=== PATIENT | male | born 1960 | race African-American/Black ===

== ENCOUNTER 2017-04-01 01:23 | Emergency (ER) | payer OTHER ==
[~2017-04-01] VITALS: Ht 180.3 cm; Wt 90.0 kg
[~2017-04-01 01:23] MED LIST: CARD8TAB6 PO
[2017-04-01 01:24] VITALS: BP 128/76; PULSE 91; RESP 16; TEMP 98.9; O2SAT 97
[2017-04-01 03:22] LABS: BACTERIA, URINE OCC /hpf; BILIRUBIN, URINE NEG (NEG); BLOOD, URINE SMALL (NEG); GLUCOSE,URINE NEG (NEG); KETONE, URINE NEG (NEG); MUCUS URINE FEW /lpf (OCC); NITRITE,URINE POS (NEG); PH, URINE 7.5 (5.0-8.5); SPERM, URINE RARE; URINE COLOR YELLOW (YELLW/STRAW); URINE LEUKOCYTE ESTERASE LARGE (NEG)
[2017-04-01] MEDS ORDERED: DOXA1TAB43 PO (03:41)
[2017-04-01] MEDS ORDERED: CEPH-460 PO (03:41)
--- NOTE | 2017-04-01 03:41 | PD ---
HPI Chief Complaint: Complaint Time Seen by Provider: 02:28 Travel History International Travel<30 days: No Contact w/Intl Traveler<30days: No Traveled to known affect area: No History of Present Illness HPI This is a 56-year-old male who has a history of BPH who presents to the emergency department with pain in his urethra ever since he had a Sauceda catheter put in a week and a half ago. His pain is constant, burning, moderate severity, with no associated fevers or chills. He does have some lower abdominal discomfort. He has been in retirement and they've been changing his catheter care but he feels like they often do her right. He really just wants the catheter out. [facility] Past Medical History Diminished Hearing: No Kidney Stones: Yes Past Surgical History Genitourinary Surgery: Yes (KIDNEY STONE REMOVED 02/22/07) Social History Alcohol Use: No Tobacco Use: Yes (1 PPD) Substance Use: No Allergies-Medications (Allergen,Severity, Reaction): Coded Allergies: No Known Allergies (Verified , 04/01/17) Reported Meds & Prescriptions Reported Meds & Active Scripts Active Cardura 8 mg (Doxazosin Mesylate) 8 Mg Tab 1 Tab PO DAILY Cardura 8 mg (Doxazosin Mesylate) 8 Mg Tab 1 Tab PO DAILY 30 Days Review of Systems Except as stated in HPI: all other systems reviewed are Neg Physical Exam Narrative GENERAL:Well appearing, no acute distress SKIN: Focused skin assessment warm and dry. HEAD: Atraumatic. Normocephalic. EYES: Pupils equal and round. No injection or drainage. ENT: Moist mucous membranes NECK: Trachea midline. CARDIOVASCULAR: Regular rate and rhythm. No murmur appreciated. RESPIRATORY: Clear to auscultation. Breath sounds equal bilaterally. GASTROINTESTINAL: Abdomen soft, non-tender, nondistended. MUSCULOSKELETAL: No obvious deformities. NEUROLOGICAL: Awake and alert. No obvious cranial nerve deficits. Moving all extremities. PSYCHIATRIC: Appropriate mood and affect; insight and judgment normal. Data Data Last Documented VS Vital Signs Date Time Temp Pulse Resp B/P (MAP) Pulse Ox O2 Delivery O2 Flow Rate FiO2 04/01/17 01:24 98.9 91 16 128/76 (93) 97 Room Air Orders Orders Urinalysis - C+S If Indicated (04/01/17 02:49) Remove Urinary Catheter .ONCE (04/01/17 02:49) Urine Culture (04/01/17 03:00) Labs Laboratory Tests Test 04/01/17 03:00 Urine Color YELLOW Urine Turbidity HAZY Urine pH 7.5 Urine Specific [place] 1.022 Urine Protein 30 mg/dL Urine Glucose (UA) NEG mg/dL Urine Ketones NEG mg/dL Urine Occult Blood SMALL Urine Nitrite POS Urine Bilirubin NEG Urine Urobilinogen LESS THAN 2.0 MG/DL Urine Leukocyte Esterase LARGE Urine RBC 17 /hpf Urine WBC 131 /hpf Urine Bacteria OCC /hpf Urine Mucus FEW /lpf Urine Sperm RARE Microscopic Urinalysis Comment CULTURE INDICATED MDM Medical Decision Making Medical Screen Exam Complete: Yes Emergency Medical Condition: Yes Interpretation(s) Urinalysis: Urinary tract infection Differential Diagnosis Urinary tract infection, urethral trauma, Sauceda catheter complication Narrative Course This is a 56-year-old male who has indwelling Sauceda catheter who presents to the emergency department with pain in his urethra. He wants his Sauceda catheter removed. I think this is reasonable. Patient follow-up with urology. His urine is quite cloudy so he was treated for urinary tract infection. He otherwise appears well. He is requesting opiate analgesia but I told him I was unable to fill that for chronic pain in the emergency department. He will be discharged home. Diagnosis Primary Impression: Sauceda catheter problem Qualified Codes: T83.9XXA - Unspecified complication of genitourinary prosthetic device, implant and graft, initial encounter Patient Instructions: General Instructions Additional Instructions: If you develop fever, persistent vomiting, back pain, or inability to eat return to the emergency department as your urine infection may have progressed to a kidney infection. Complete your antibiotics as prescribed. Stay well hydrated with Gatorade or water. Followup with your primary care physician in 2-3 days if your symptoms have not resolved. Med/Other Pt SpecificInfo: Prescription(s) given Scripts Doxazosin (Doxazosin) 8 Mg Tab 8 MG PO DAILY, #30 TAB 0 Refills Prov: Anamika Barajas MD 04/01/17 Cephalexin (Keflex) 500 Mg Cap 500 MG PO Q12H for Infection for 7 Days, #14 CAP 0 Refills Prov: Anamika Barajas MD 04/01/17 Disposition: DISCHARGE HOME Condition: Stable Anamika Barajas MD Apr 01, 2017 03:41
== END 2017-04-01 04:06 | disposition home or self-care (01) ==
LOC: NEPE 01:23
DX: T83.9XXA Unspecified complication of genitourinary prosthetic device, implant and graft, initial encounter (principal); N40.0 Benign prostatic hyperplasia without lower urinary tract symptoms; N39.0 Urinary tract infection, site not specified; B96.20 Unspecified Escherichia coli [E. coli] as the cause of diseases classified elsewhere; Y84.6 Urinary catheterization as the cause of abnormal reaction of the patient, or of later complication, without mention of misadventure at the time of the procedure
CPT/HCPCS: 81001; 87077; 87086; 87186; 99284

== ENCOUNTER 2017-04-01 20:35 | Emergency (ER) | payer OTHER ==
[~2017-04-01] VITALS: Ht 180.3 cm; Wt 90.0 kg
[~2017-04-01 20:35] MED LIST changes: +CEPH-460 PO; +DOXA1TAB43 PO
[2017-04-01 20:37] VITALS: BP 236/100; PULSE 108; RESP 16; TEMP 98.3; O2SAT 98
--- NOTE | 2017-04-01 21:37 | PD ---
HPI Chief Complaint: Complaint Time Seen by Provider: 21:02 Travel History International Travel<30 days: No Contact w/Intl Traveler<30days: No Traveled to known affect area: No History of Present Illness HPI patient had guerrero removed yesterday, he thought that he could urinate without it and diagnosed with uti yesterday as well placed on keflex. returns today c/ o inability to urinate fully since evening, has had similar issues in past, dr moss (urologist) was supposed to do a procedure but he violated probation and went to retirement. [facility] Past Medical History Diminished Hearing: No Genitourinary: Yes (Urinary Retention) Kidney Stones: Yes Tetanus Vaccination: < 5 Years Influenza Vaccination: No Past Surgical History Genitourinary Surgery: Yes (KIDNEY STONE REMOVED 02/22/07) Social History Alcohol Use: No Tobacco Use: Yes (1 PPD) Substance Use: No Allergies-Medications (Allergen,Severity, Reaction): Coded Allergies: No Known Allergies (Verified , 04/01/17) Reported Meds & Prescriptions Reported Meds & Active Scripts Active Doxazosin (Doxazosin Mesylate) 8 Mg Tab 8 Mg PO DAILY Keflex (Cephalexin) 500 Mg Cap 500 Mg PO Q12H 7 Days Cardura 8 mg (Doxazosin Mesylate) 8 Mg Tab 1 Tab PO DAILY Cardura 8 mg (Doxazosin Mesylate) 8 Mg Tab 1 Tab PO DAILY 30 Days Review of Systems Except as stated in HPI: all other systems reviewed are Neg General / Constitutional: No: Fever Eyes: No: Visual changes HENT: No: Headaches Cardiovascular: No: Chest Pain or Discomfort Respiratory: No: Shortness of Breath Gastrointestinal: No: Abdominal Pain Genitourinary: Positive: Decreased Urinary Output, Other (suprapubic discomfort ) Musculoskeletal: No: Pain Skin: No Rash Neurologic: No: Weakness Psychiatric: No: Depression Endocrine: No: Polydipsia Hematologic/Lymphatic: No: Easy Bruising Physical Exam Narrative GENERAL: SKIN: Warm and dry. HEAD: Atraumatic. Normocephalic. EYES: Pupils equal and round. No scleral icterus. No injection or drainage. ENT: No nasal bleeding or discharge. Mucous membranes pink and moist. NECK: Trachea midline. No JVD. CARDIOVASCULAR: Regular rate and rhythm. RESPIRATORY: No accessory muscle use. Clear to auscultation. Breath sounds equal bilaterally. GASTROINTESTINAL: Abdomen soft, non-tender, nondistended. some mild ttp over suprapubic region MUSCULOSKELETAL: Extremities without clubbing, cyanosis, or edema. No obvious deformities. NEUROLOGICAL: Awake and alert. No obvious cranial nerve deficits. Motor grossly within normal limits. Five out of 5 muscle strength in the arms and legs. Normal speech. PSYCHIATRIC: Appropriate mood and affect; insight and judgment normal. Data Data Last Documented VS Vital Signs Date Time Temp Pulse Resp B/P (MAP) Pulse Ox O2 Delivery O2 Flow Rate FiO2 04/01/17 22:36 04/01/17 21:02 18 04/01/17 20:37 98.3 108 98 Room Air Orders Orders Bladder/Catheter Irrigation (04/01/17 21:03) Ed Discharge Order (04/01/17 22:34) [facility] Medical Decision Making Medical Screen Exam Complete: Yes Emergency Medical Condition: Yes Medical Record Reviewed: Yes Differential Diagnosis uti v urinary retention Narrative Course prior ua found to have findings c/w uti and already on abx, after placing guerrero nearly 400cc initial drain, will switch to leg bag and advised patient to follow up with dr moss urology Diagnosis Primary Impression: urinary retention s/p guerrero Patient Instructions: General Instructions, Urinary Retention in Men (DC) Disposition: 01 DISCHARGE HOME Condition: Stable Reinaldo Washburn MD Apr 01, 2017 21:37
== END 2017-04-01 22:38 | disposition home or self-care (01) ==
LOC: NEPD 20:35
DX: R33.9 Retention of urine, unspecified (principal); N39.0 Urinary tract infection, site not specified; B96.20 Unspecified Escherichia coli [E. coli] as the cause of diseases classified elsewhere
CPT/HCPCS: 51700

== ENCOUNTER 2017-04-13 14:04 | Emergency (ER) | payer OTHER ==
[~2017-04-13] VITALS: Ht 180.3 cm; Wt 89.5 kg
[2017-04-13 14:04] VITALS: BP 124/81; PULSE 74; RESP 16; TEMP 98.4; O2SAT 97
--- NOTE | 2017-04-13 17:20 | PD ---
HPI Chief Complaint: Complaint Time Seen by Provider: 15:56 Travel History International Travel<30 days: No Contact w/Intl Traveler<30days: No Traveled to known affect area: No History of Present Illness HPI 56-year-old male with history of BPH presents to emergency room for Guerrero catheter care and replacement. Patient states he had his catheter replaced a few weeks ago in the ED. States he has been doing well until a couple days ago when he began to have urine from the penis leak from around the catheter. Reports associated foul-smelling urine, cloudy urine, and white penile discharge. Denies any recent or new sexual partners. He has had a catheter for the past 5 months. Patient reports it was first placed in senior care where it was managed until he was released. He was supposed to have BPH surgical procedure with Dr. Roque performed in June of this year but was incarcerated and missed his appointment. Denies fever, chills, nausea, vomiting , or flank pain. PFSH Past Medical History Diminished Hearing: No Genitourinary: Yes (Urinary Retention, guerrero cath ) Kidney Stones: Yes Tetanus Vaccination: > 5 Years Past Surgical History Genitourinary Surgery: Yes (KIDNEY STONE REMOVED 02/22/07) Social History Alcohol Use: No Tobacco Use: Yes (1 PPD) Substance Use: No Allergies-Medications (Allergen,Severity, Reaction): Coded Allergies: No Known Allergies (Verified Adverse Reaction, Unknown, 04/13/17) Reported Meds & Prescriptions Reported Meds & Active Scripts Active Augmentin (Amoxicillin-Clavulanate) 500-125 mg Tab 500 Mg PO BID 7 Days Review of Systems Except as stated in HPI: all other systems reviewed are Neg Physical Exam Narrative GENERAL: Well-nourished, well-developed male in no acute distress. Afebrile. Ambulatory. SKIN: Focused skin assessment warm/dry. HEAD: Normocephalic. EYES: No scleral icterus. No injection or drainage. NECK: Supple, trachea midline. No JVD or lymphadenopathy. CARDIOVASCULAR: Regular rate and rhythm without murmurs, gallops, or rubs. RESPIRATORY: Breath sounds equal bilaterally. No accessory muscle use. GASTROINTESTINAL: Abdomen soft, non-tender, nondistended. GENITOURINARY: Examined in the presence of a nurse. Circumcised. Guerrero catheter in place without any purulent drainage. Urine cloudy but yellow. Data Data Last Documented VS Vital Signs Date Time Temp Pulse Resp B/P (MAP) Pulse Ox O2 Delivery O2 Flow Rate FiO2 04/13/17 18:17 87 20 124/74 (91) 99 04/13/17 14:04 98.4 Room Air Orders Orders Complete Blood Count With Diff (04/13/17 16:08) Basic Metabolic Panel (Bmp) (04/13/17 16:08) Ua Includes Microscopic (04/13/17 16:08) Urinary Catheter Insert/Apply (04/13/17 16:08) Ed Discharge Order (04/13/17 18:04) Labs Laboratory Tests Test 04/13/17 16:45 04/13/17 16:55 Urine Color YELLOW Urine Turbidity CLOUDY Urine pH 6.0 Urine Specific [place] 1.026 Urine Protein 300 mg/dL Urine Glucose (UA) NEG mg/dL Urine Ketones NEG mg/dL Urine Occult Blood LARGE Urine Nitrite NEG Urine Bilirubin NEG Urine Urobilinogen LESS THAN 2.0 MG/DL Urine Leukocyte Esterase LARGE Urine RBC /hpf Urine WBC /hpf Urine WBC Clumps OCC Urine Bacteria RARE /hpf Urine Mucus MANY /lpf White Blood Count 7.8 TH/MM3 Red Blood Count 4.37 MIL/MM3 Hemoglobin 14.0 GM/DL Hematocrit 38.8 % Mean Corpuscular Volume 88.9 FL Mean Corpuscular Hemoglobin 31.9 PG Mean Corpuscular Hemoglobin Concent 36.0 % Red Cell Distribution Width 14.4 % Platelet Count 304 TH/MM3 Mean Platelet Volume 6.9 FL Neutrophils (%) (Auto) 45.8 % Lymphocytes (%) (Auto) 35.8 % Monocytes (%) (Auto) 9.0 % Eosinophils (%) (Auto) 8.8 % Basophils (%) (Auto) 0.6 % Neutrophils # (Auto) 3.6 TH/MM3 Lymphocytes # (Auto) 2.8 TH/MM3 Monocytes # (Auto) 0.7 TH/MM3 Eosinophils # (Auto) 0.7 TH/MM3 Basophils # (Auto) 0.0 TH/MM3 CBC Comment AUTO DIFF Differential Comment AUTO DIFF CONFIRMED Platelet Estimate NORMAL Platelet Morphology Comment NORMAL Blood Urea Nitrogen 13 MG/DL Creatinine 0.90 MG/DL Random Glucose 97 MG/DL Calcium Level 8.9 MG/DL Sodium Level 141 MEQ/L Potassium Level 3.7 MEQ/L Chloride Level 108 MEQ/L Carbon Dioxide Level 28.5 MEQ/L Anion Gap 5 MEQ/L Estimat Glomerular Filtration Rate 106 ML/MIN MDM Medical Decision Making Medical Screen Exam Complete: Yes Emergency Medical Condition: Yes Medical Record Reviewed: Yes Differential Diagnosis UTI, sepsis, after complication, obstruction Narrative Course 56-year-old male with history of BPH and urinary catheter for the past 5 months presents to the emergency room for evaluation of penile discharge that he first noticed a few days ago. Patient states he has had cloudy urine and urine going past his catheter over the past few days but denies fever, chills, nausea, vomiting, abdominal pain, or flank pain. He is afebrile and well-appearing in the emergency room. He does not have a PCP or urologist. Physical exam is reassuring. Patient resting comfortably. There is no discharge from the penis. There is some cloudy urine in the catheter. UA shows evidence of urinary tract infection. No evidence of sepsis or indication for admission. Catheter was replaced and had normal outflow and flushed easily. Previous cultures were susceptible to Augmentin. Patient discharged with prescription for Augmentin. Told to follow-up with the urologist or return for worsening symptoms. He understands and agrees to plan. Diagnosis Primary Impression: Complication of Guerrero catheter Qualified Codes: T83.9XXA - Unspecified complication of genitourinary prosthetic device, implant and graft, initial encounter Additional Impression: Urinary tract infection Qualified Codes: N30.01 - Acute cystitis with hematuria Referrals: Urologist Additional Instructions: Rest and drink plenty of fluids. Take Augmentin as directed, until gone. Take ibuprofen with food as directed, as needed for pain. Follow-up with urology. Return to the emergency room for worsening symptoms. Med/Other Pt SpecificInfo: Prescription(s) given Scripts Amoxicillin-Clavulanate (Augmentin) 500-125 mg Tab 500 MG PO BID for Infection for 7 Days, TAB 0 Refills Prov: WilkersonAmbar Hanna ECHEVERRIA 04/13/17 Disposition: 01 DISCHARGE HOME Condition: Stable Ashlee Hinson Apr 13, 2017 17:20
[2017-04-13 17:23] LABS: AUTOMATED NEUTROPHIL # 3.6 TH/MM3 (1.8-7.7); BASOPHIL % 0.6 % (0.0-2.0); EOSINOPHIL # 0.7 TH/MM3 (0-0.4); EOSINOPHIL % 8.8 % (0.0-4.0); HEMATOCRIT 38.8 % (39.0-51.0); LYMPH % 35.8 % (9.0-44.0); LYMPHOCYTE # 2.8 TH/MM3 (1.0-4.8); MEAN CELL VOLUME 88.9 FL (80.0-100.0); MEAN CORPUSCULAR HEMOGLOBIN 31.9 PG (27.0-34.0); NEUT % 45.8 % (16.0-70.0); PLATELET COUNT 304 TH/MM3 (150-450); RED BLOOD COUNT 4.37 MIL/MM3 (4.50-5.90); RED CELL DISTRIBUTION WIDTH 14.4 % (11.6-17.2); WHITE BLOOD COUNT 7.8 TH/MM3 (4.0-11.0)
[2017-04-13 17:32] LABS: BACTERIA, URINE RARE /hpf; BLOOD, URINE LARGE (NEG); GLUCOSE,URINE NEG (NEG); KETONE, URINE NEG (NEG); MUCUS URINE MANY /lpf (OCC); NITRITE,URINE NEG (NEG); URINE COLOR YELLOW (YELLW/STRAW)
[2017-04-13 17:33] LABS: HEMO FLAGS AUTO DIFF
[2017-04-13 17:59] LABS: BICARBONATE 28.5 MEQ/L (21.0-32.0); POTASSIUM 3.7 MEQ/L (3.5-5.1)
[2017-04-13] MEDS ORDERED: AUGM500T7 PO (18:02)
[2017-04-13 18:17] VITALS: BP 124/74
[2017-04-13 18:47] LABS: SCAN/DIFF AUTO DIFF CONFIRMED
[2017-04-13 18:48] LABS: PLATELET ESTIMATE SMEAR NORMAL (NORMAL); PLATELET MORPHOLOGY NORMAL (NORMAL)
== END 2017-04-13 18:56 | disposition home or self-care (01) ==
LOC: NEPD 14:04
DX: T83.511A Infection and inflammatory reaction due to indwelling urethral catheter, initial encounter (principal); N30.01 Acute cystitis with hematuria
CPT/HCPCS: 51702; 80048; 81001; 85025

== ENCOUNTER 2017-04-24 23:31 | Emergency (ER) | payer OTHER ==
[~2017-04-24] VITALS: Ht 180.3 cm; Wt 87.0 kg
[~2017-04-24 23:31] MED LIST changes: +AUGM500T7 PO; -CARD8TAB6 PO; -CEPH-460 PO; -DOXA1TAB43 PO
[2017-04-24 23:39] VITALS: BP 147/83; PULSE 74; RESP 16; TEMP 97.8; O2SAT 98
--- NOTE | 2017-04-25 00:04 | PD ---
HPI Chief Complaint: Complaint Time Seen by Provider: 23:52 Travel History International Travel<30 days: No Contact w/Intl Traveler<30days: No Traveled to known affect area: No History of Present Illness HPI 56-year-old male arrives requesting his Guerrero catheter removed. He also states he's had urinary tract infections and has had multiple different antibiotics all of which seemed to fail to improve the urinary tract infection. No vomiting or diarrhea or nausea reported. No fever reported. He has follow-up with urology in 23 days. He notes some pain at times in the region of the penis which he believes is related to the Guerrero catheter. PFSH Past Medical History Diminished Hearing: No Genitourinary: Yes (Urinary Retention, guerrero cath ) Kidney Stones: Yes Tetanus Vaccination: > 5 Years Influenza Vaccination: No Past Surgical History Genitourinary Surgery: Yes (KIDNEY STONE REMOVED 02/22/07) Social History Alcohol Use: No Tobacco Use: Yes (1 PPD) Substance Use: No Allergies-Medications (Allergen,Severity, Reaction): Coded Allergies: No Known Allergies (Verified Adverse Reaction, Unknown, 04/24/17) Reported Meds & Prescriptions Reported Meds & Active Scripts Active Macrobid (Nitrofurantoin Monoh/Nitrofur Macro) 100 Mg Cap 100 Mg PO BID 5 Days Review of Systems Except as stated in HPI: all other systems reviewed are Neg General / Constitutional: No: Fever Respiratory: No: Shortness of Breath Physical Exam Narrative GENERAL: 56-year-old male well-nourished well-developed no acute distress GENITOURINARY: No discharge at the urethral meatus. There is cloudy yellow urine in his Guerrero bag SKIN: Focused skin assessment warm/dry. HEAD: Atraumatic. Normocephalic. EYES: Pupils equal and round. No scleral icterus. No injection or drainage. CARDIOVASCULAR: Regular rate and rhythm. No murmur appreciated. RESPIRATORY: No accessory muscle use. Clear to auscultation. Breath sounds equal bilaterally. GASTROINTESTINAL: Abdomen soft, non-tender, nondistended. Hepatic and splenic margins not palpable. MUSCULOSKELETAL: No obvious deformities. No clubbing. No cyanosis. No edema. NEUROLOGICAL: Awake and alert. No obvious cranial nerve deficits. Motor grossly within normal limits. Normal speech. PSYCHIATRIC: Appropriate mood and affect; insight and judgment normal. Data Data Last Documented VS Vital Signs Date Time Temp Pulse Resp B/P (MAP) Pulse Ox O2 Delivery O2 Flow Rate FiO2 04/25/17 02:01 04/24/17 23:39 97.8 74 16 98 Room Air Vital signs reviewed Orders Orders Replace Guerrero (04/24/17 23:55) Urinalysis - C+S If Indicated (04/24/17 23:55) Urine Culture (04/25/17 01:13) Ed Discharge Order (04/25/17 01:39) Labs Laboratory Tests Test 04/25/17 01:13 Urine Color LIGHT-YELLOW Urine Turbidity HAZY Urine pH 6.5 Urine Specific [place] 1.017 Urine Protein 30 mg/dL Urine Glucose (UA) NEG mg/dL Urine Ketones NEG mg/dL Urine Occult Blood MOD Urine Nitrite NEG Urine Bilirubin NEG Urine Urobilinogen LESS THAN 2.0 MG/DL Urine Leukocyte Esterase LARGE Urine RBC 4-9 /hpf Urine WBC 20-24 /hpf Urine Squamous Epithelial Cells 0-5 /hpf Urine Bacteria FEW /hpf Microscopic Urinalysis Comment CATH-CULTURE IND MDM Medical Decision Making Medical Screen Exam Complete: Yes Emergency Medical Condition: Yes Medical Record Reviewed: Yes Differential Diagnosis urinary tract infection, BPH, Guerrero catheter obstruction Narrative Course Guerrero catheter was removed. The patient urinated about 500 cc of urine however took him several minutes and eventually he requested to have the Guerrero replaced. Patient has urology follow-up scheduled and is suitable for discharge home. Urinalysis shows UTI. Prior cultures have grown out Escherichia coli with sensitivity to Macrobid so we'll prescribe Macrobid. Diagnosis Primary Impression: UTI (urinary tract infection) Qualified Codes: N39.0 - Urinary tract infection, site not specified Additional Impression: Encounter for Guerrero catheter removal Additional Instructions: Follow-up with urology as scheduled. Med/Other Pt SpecificInfo: Prescription(s) given Scripts Nitrofurantoin Monohydrate Macrocrystals (Macrobid) 100 Mg Cap 100 MG PO BID for Infection for 5 Days, #10 CAP 0 Refills Prov: Nasir Jaramillo MD 04/25/17 Disposition: 01 DISCHARGE HOME Condition: Stable Nasir Jaramillo MD Apr 25, 2017 00:03
[2017-04-25 01:22] LABS: BLOOD, URINE MOD (NEG); GLUCOSE,URINE NEG (NEG); KETONE, URINE NEG (NEG); NITRITE,URINE NEG (NEG); PH, URINE 6.5 (5.0-8.5); URINE COLOR LIGHT-YELLOW (YELLW/STRAW)
[2017-04-25 01:33] LABS: BACTERIA, URINE FEW /hpf; COMMENT (UR) CATH-CULTURE IND; CULTURE IF INDICATED CATH CULTURE IND; SQUAMOUS EPITHELIAL CELL URINE 0-5 /hpf (0-5)
[2017-04-25] MEDS ORDERED: MACR100C2 PO (01:35)
== END 2017-04-25 02:19 | disposition home or self-care (01) ==
LOC: NEPC 23:31
DX: N39.0 Urinary tract infection, site not specified (principal); B96.20 Unspecified Escherichia coli [E. coli] as the cause of diseases classified elsewhere; Z46.6 Encounter for fitting and adjustment of urinary device; F17.200 Nicotine dependence, unspecified, uncomplicated
CPT/HCPCS: 51702; 81001; 87077; 87086; 87186

== ENCOUNTER 2017-05-08 18:48 | Emergency (ER) | payer OTHER ==
[~2017-05-08] VITALS: Ht 180.3 cm; Wt 87.0 kg
[2017-05-08 18:49] VITALS: BP 129/75; PULSE 72; RESP 16; TEMP 98.6; O2SAT 96
--- NOTE | 2017-05-08 20:49 | PD ---
HPI Chief Complaint: Complaint Time Seen by Provider: 20:46 Travel History International Travel<30 days: No Contact w/Intl Traveler<30days: No Traveled to known affect area: No History of Present Illness HPI 56-year-old male with history of BPH with chronic indwelling Guerrero catheter. He presents requesting his Guerrero catheter be replaced. He reports that he typically has replaced every 2 weeks and feels like it is due to. He reports irritation in his suprapubic region which is constant, aggravated by Guerrero catheter. Denies any nausea, vomiting, fevers, chills, flank pain. His urologist is Dr. Roque. He has been on antibiotics recently, recently discontinued Macrobid. No other complaints. [facility] Past Medical History Diminished Hearing: No Genitourinary: Yes (Urinary Retention, guerrero cath ) Kidney Stones: Yes Past Surgical History Genitourinary Surgery: Yes (KIDNEY STONE REMOVED 02/22/07) Social History Alcohol Use: No Tobacco Use: Yes (/2 PPD) Substance Use: No Allergies-Medications (Allergen,Severity, Reaction): Coded Allergies: No Known Allergies (Verified Adverse Reaction, Unknown, 05/08/17) Reported Meds & Prescriptions Reported Meds & Active Scripts Active No Active Prescriptions or Reported Medications Review of Systems General / Constitutional: No: Fever, Chills Gastrointestinal: Positive: Abdominal Pain, No: Nausea, Vomiting Genitourinary: Positive: Other (positive for suprapubic irritation and pain) Physical Exam Narrative GENERAL: Well-developed well-nourished male in no acute distress SKIN: Warm and dry. HEAD: Atraumatic. Normocephalic. EYES: Pupils equal and round. No scleral icterus. No injection or drainage. ENT: No nasal bleeding or discharge. Mucous membranes pink and moist. NECK: Trachea midline. No JVD. CARDIOVASCULAR: Regular rate and rhythm. No murmur appreciated. RESPIRATORY: No accessory muscle use. Clear to auscultation. Breath sounds equal bilaterally. GASTROINTESTINAL: Abdomen soft, suprapubic tenderness without guarding, no CVA tenderness, Guerrero catheter in place with yellow urine noted in Guerrero bag. MUSCULOSKELETAL: No obvious deformities. No clubbing. No cyanosis. No edema. NEUROLOGICAL: Awake and alert. No obvious cranial nerve deficits. Motor grossly within normal limits. Normal speech. PSYCHIATRIC: Appropriate mood and affect; insight and judgment normal. Data Data Last Documented VS Vital Signs Date Time Temp Pulse Resp B/P (MAP) Pulse Ox O2 Delivery O2 Flow Rate FiO2 05/08/17 18:49 98.6 72 16 129/75 (93) 96 Orders Orders Replace Guerrero (05/08/17 20:45) Lidocaine 2% Jelly (Xylocaine 2% Jelly) (05/08/17 21:15) MDM Medical Decision Making Medical Screen Exam Complete: Yes Emergency Medical Condition: Yes Medical Record Reviewed: Yes Differential Diagnosis Guerrero catheter replacement versus cystitis versus malfunctioning Guerrero catheter Narrative Course The Guerrero catheter will be replaced. He is stable for discharge, outpatient follow-up with his urologist. Diagnosis Primary Impression: Encounter for Guerrero catheter replacement Additional Instructions: Follow-up with urologist. Return for any emergent medical conditions. Med/Other Pt SpecificInfo: No Change to Meds Scripts No Active Prescriptions or Reported Meds Disposition: 01 DISCHARGE HOME Condition: Stable Iam Beckford May 08, 2017 20:48
[2017-05-08] MEDS ORDERED: LIDOCAINE 2% JELLY 30 ML TUBE TOPICAL ONE (21:15)
== END 2017-05-08 21:30 | disposition home or self-care (01) ==
LOC: NEPD 18:48
DX: Z46.6 Encounter for fitting and adjustment of urinary device (principal); F17.200 Nicotine dependence, unspecified, uncomplicated
CPT/HCPCS: 51702

== ENCOUNTER → 2017-05-19 | Day surgery (SDC) | payer OTHER ==
[~2017-05-19] VITALS: Ht 180.3 cm; Wt 92.5 kg
[~2017-05-19] MED LIST changes: +*morphine SULFATE 8 MG/ML PERIprocedure ONLY ONE; +ACETAMINOPHEN/HYDROcodone 325 MG/5 MG TAB PO PRN; +AMPICILLIN 1 GM/NS 100 ML IV SCH; -AUGM500T7 PO; +BELLADONNA ALKALOIDS/OPIUM 60 MG SUPP RECTAL ONE; +CHLORHEXIDINE GLUCONATE 2 % 1 PACK (2 CLOTHS) TOPICAL PRN; +CIPR-9 PO; +DO NOT ADM ANY ANTICOAGULANT DRUGS PRN; +GENTAMICIN INJ 240 MG in SODIUM CHLORIDE 0.9% INJ 100 ML IV SCH; +LACTATED RINGER'S 1000 ML IV PRN; +METOPROLOL TARTRATE 25 MG TAB PO PRN; +MORPHINE SULFATE 2 MG/ML INJ IV PRN; +NORC5TAB PO; +ONDANSETRON HCL 4 MG/2 ML VIAL IV PUSH PRN; +POVIDONE IODINE 5% (ANTISEPSIS KIT) 4 APPLICATIONS EACH NARE PRN; +SODIUM CHLORID 0.9% 500 ML IV PRN
[2017-05-19 09:11] LABS: AUTOMATED NEUTROPHIL # 3.9 TH/MM3 (1.8-7.7); BASOPHIL # 0.1 TH/MM3 (0-0.2); BASOPHIL % 0.9 % (0.0-2.0); EOSINOPHIL # 0.5 TH/MM3 (0-0.4); EOSINOPHIL % 6.7 % (0.0-4.0); HEMO FLAGS DIFF FINAL; LYMPH % 30.9 % (9.0-44.0); LYMPHOCYTE # 2.3 TH/MM3 (1.0-4.8); MEAN CELL VOLUME 88.8 FL (80.0-100.0); MEAN CORPUSCULAR HEMOGLOBIN 30.9 PG (27.0-34.0); MEAN CORPUSCULAR HGB CONC 34.8 % (32.0-36.0); MONO % 8.7 % (0.0-8.0); NEUT % 52.8 % (16.0-70.0); PLATELET COUNT 320 TH/MM3 (150-450); RED BLOOD COUNT 4.62 MIL/MM3 (4.50-5.90); WHITE BLOOD COUNT 7.4 TH/MM3 (4.0-11.0)
--- NOTE | 2017-05-19 13:29 | PD.OP ---
Operative Report Date of Surgery: May 19, 2017 Preoperative Diagnosis: BPH with urinary retention Postoperative Diagnosis: Same Procedure: Cystoscopy with transurethral resection of the prostate Anesthesia: LILLIAM Surgeon: Raymond Roque Body Liner(s): None Resident Surgeon: None Operation and Findings: 56 year-old male with history of BPH with obstruction; he's been in urinary retention for the last few months. Patient has required an indwelling Sauceda catheter on repeated admissions to the emergency room and presently has one in place now. She underwent cystoscopy in the office last week and decision was made to undergo transurethral resection of the prostate to relieve his urinary retention. Risk and benefits were discussed. Presently he is willing to proceed. Patient was brought to the operating room and identified by myself as Roberto Adrian. He was placed in dorsal lithotomy position, prepped and draped in usual sterile fashion, received preprocedure antibiotics and general endotracheal tube anesthesia was administered. 22 Belgian cystoscopy was inserted in the bladder and a large coapting prostate was identified. The prostatic urethra was noted to be long. The right ureteral orifice was identified but I was unable to visualize the left ureteral orifice. Patient was noted to have a large diverticulum on the left near the position of the left UO and also one on the right side. Using the bipolar resectoscope loop the prostate was shaved at the 6 o'clock position and then at the 4 and 8:00 positions and then working circumferentially on each side up to the 12 o'clock position. Hemostasis was obtained throughout. Once the channel was open and the prostate was cored out the remaining chips were irrigated out with the Ellik evacuator. At the completion of procedure a 22 Belgian three-way Sauceda catheter was inserted with 20 cc in the balloon. He tolerated the procedure well and was awoken and extubated and transferred occur in stable condition. He will return to the office on Tuesday and undergo void trial at that time. Raymond Roque DO May 19, 2017 13:29
--- NOTE | 2017-05-19 13:58 | EKG ---
Date Performed: 05/19/2017 Time Performed: 08:34:29 PTAGE: 56 years EKG: SINUS BRADYCARDIA BORDERLINE ECG Compared to prior tracing no significant change PREVIOUS TRACING : 02/22/2007 09.45 DOCTOR: Senait Hartmann Interpretating Date/Time 05/19/2017 13:57:03
[2017-05-19 15:43] VITALS: BP 163/97; PULSE 54; RESP 16; TEMP 97.6; O2SAT 100
== END | disposition home or self-care (01) ==
LOC: HSDC 07:37
PROVIDERS: ATTEND Urology
DX: N40.1 Benign prostatic hyperplasia with lower urinary tract symptoms (principal); R33.8 Other retention of urine; N41.1 Chronic prostatitis; R94.31 Abnormal electrocardiogram [ECG] [EKG]
CPT/HCPCS: 00914; 52601; 85025; 88305; 93005; J0290; J1580; J2270; J7120; 88307